=== PATIENT | male | born 1965 | race Caucasian/White ===

== ENCOUNTER 2021-02-25 14:25 | Observation (INO) | payer OTHER ==
[2021-02-25 15:45] LABS: BASO % 0.6 % (0-2.0); EOS % 3.2 % (0-4.5); HEMATOCRIT 40.3 % (35.4-49); HEMOGLOBIN 14.2 GM/dL (11.7-16.9); LYMPH % 20.8 % (8-40); MCH 33.2 pg (25.7-33.7); MCHC 35.2 g/dl (32.0-35.9); MEAN CELL VOLUME 94.1 fl (80-96); MEAN PLT VOLUME 8.5 fl (7.5-11.1); MONO % 10.6 % (3.8-10.2); NEUT % 64.8 % (42.8-82.8); PLATELET COUNT 216 K/MM3 (134-434); RBC 4.29 M/mm3 (4.00-5.60); RDW 14.3 % (11.9-15.9)
[2021-02-25 16:04] LABS: CHLORIDE 92 mmol/L (98-107)
[2021-02-25 17:18] LABS: ALBUMIN 3.3 g/dl (3.4-5.0); BLOOD UREA NITROGEN 9.6 mg/dL (7-18); CALCIUM 8.2 mg/dL (8.5-10.1); CREATININE 0.8 mg/dL (0.55-1.3); GLUCOSE,RANDOM 130 mg/dL (74-106); SODIUM 109 mmol/L (136-145); TOT PROT 11.1 g/dl (6.4-8.2)
[2021-02-25] MEDS ORDERED: ASPIRIN 81 MG CHEWABLE TABLETS PO ONE (18:35)
[2021-02-25] MEDS ORDERED: ASPIRIN 81 MG CHEWABLE TABLETS ONE (18:43)
[2021-02-25 20:16] LABS: CHLORIDE 101 mmol/L (98-107); SODIUM 138 mmol/L (136-145)
[2021-02-25 20:18] LABS: CALCIUM 8.8 mg/dL (8.5-10.1)
[2021-02-25 20:19] LABS: ANION GAP 10 MMOL/L (8-16); BLOOD UREA NITROGEN 8.3 mg/dL (7-18); CO2 27 mmol/L (21-32); GLUCOSE,RANDOM 115 mg/dL (74-106)
[2021-02-25 20:22] LABS: CREATININE 0.5 mg/dL (0.55-1.3); SGOT/AST 36 U/L (15-37); SGPT/ALT 50 U/L (13-61)
[2021-02-25 20:23] LABS: BILIRUBIN,TOTAL 0.5 mg/dL (0.2-1)
[2021-02-25 20:24] LABS: ALK PHOS 106 U/L (45-117)
[2021-02-25 20:27] LABS: ALBUMIN 4.3 g/dl (3.4-5.0); TOT PROT 8.2 g/dl (6.4-8.2)
[2021-02-26 03:00] VITALS: BMI 28.2
[2021-02-26 07:34] VITALS: TEMP 98.3
[2021-02-26 08:51] VITALS: BP 162/92; PULSE 98
== END 2021-02-26 09:40 | disposition left against medical advice (07) ==
LOC: JER 14:25 → JERBED 20:25 → J4W 02-26 02:43
PROVIDERS: ADMIT Internal Medicine; ATTEND Internal Medicine
DX: R07.89 Other chest pain (principal); I10 Essential (primary) hypertension; E78.5 Hyperlipidemia, unspecified; E11.9 Type 2 diabetes mellitus without complications; Z86.16 Personal history of COVID-19; Z86.718 Personal history of other venous thrombosis and embolism; R41.3 Other amnesia; I71.4 Abdominal aortic aneurysm, without rupture; Z85.038 Personal history of other malignant neoplasm of large intestine
CPT/HCPCS: 36415; 70450-TC; 71045-TC-FY; 80053; 80307; 82140; 82550; 82553; 82962; 84484; 85025; 93005; 93010; 99285-25; C9803; G0378; U0003; U0005

== ENCOUNTER 2023-02-12 01:19 | Emergency (ER) | payer BC, OTHER ==
[2023-02-12 01:27] VITALS: BP 153/71; PULSE 93; RESP 18; TEMP 97.8; BMI 27.3
[2023-02-12] MEDS ORDERED: DIPHTH,PERTUSS(ACELL),TET 0.5 ML DISP.SYRIN IM ONE ×2 (02:17→02:35)
== END 2023-02-12 03:24 | disposition home or self-care (01) ==
LOC: JER 01:19
PROC: 0CQ1XZZ Repair Lower Lip, External Approach (ICD-10-PCS; principal; 2023-02-12)
PROC: 3E0234Z Introduction of Serum, Toxoid and Vaccine into Muscle, Percutaneous Approach (ICD-10-PCS; 2023-02-12)
DX: S01.511A Laceration without foreign body of lip, initial encounter (principal); W22.09XA Striking against other stationary object, initial encounter
CPT/HCPCS: 90715; 99284-25